=== PATIENT | female | born 1955 | race Caucasian/White ===

== ENCOUNTER 2024-12-19 08:43 | Outpatient (CLI) | payer OTHER | END 2024-12-19 08:44 | disposition home or self-care (01) | LOC: CSHCT 08:43 | PROVIDERS: ATTEND Student in an Organized Health Care Education/Training Program | DX: R94.2 Abnormal results of pulmonary function studies (principal); R91.8 Other nonspecific abnormal finding of lung field; M41.85 Other forms of scoliosis, thoracolumbar region | CPT/HCPCS: 71250 ==